=== PATIENT | male | born 1960 | race Caucasian/White ===

== ENCOUNTER → 2024-11-22 07:03 | Outpatient (REF) | payer BC, SELFPAY ==
[2024-11-22] MEDS: LEXISCAN 0.4 MG IV (09:15)
== END ==
LOC: RCS 07:03
PROVIDERS: ATTENDING PHYSICIAN Internal Medicine Cardiovascular Disease
DX: Z01.810 Encounter for preprocedural cardiovascular examination (principal); I10 Essential (primary) hypertension
CPT/HCPCS: 78452; 93017; A9500; J2785